=== PATIENT | male | born 1940 | race Caucasian/White ===

== ENCOUNTER → 2022-11-03 | Outpatient (CLI) | payer SELFPAY, OTHER ==
--- NOTE | 2022-11-03 09:13 | ECHOD_ITS ---
Reason For Study: PALPITATIONS, TAVR Procedure This was a 2D Doppler, Color Flow transthoracic echocardiogram. The exam was of adequate technical quality. Exam performed in department. Left Ventricle Normal LV size. Apical false tendon noted. Left ventricular systolic function is normal. The estimated ejection fraction is 60 %. No evidence for diastolic dysfunction. No regional wall motion abnormalities noted. Right Ventricle Normal RV size. Normal systolic function. Atria Normal left atrium. Normal right atrium. No doppler evidence for ASD. Mitral Valve There is no mitral annular calcification. Normal mitral valve. Mild (1+) mitral valve insufficiency. Tricuspid Valve Normal tricuspid valve. Trivial tricuspid valve insufficiency. Right ventricular systolic pressure estimated to be 32 mmHg. Aortic Valve Stable appearing bioprosthetic aortic valve apparatus. Trivial transvalvular insufficiency of the aortic valve. Pulmonic Valve Normal pulmonic valve. Mild (1+) pulmonic valve insufficiency. Great Vessels Normal sized aortic root. Pericardium/Pleural No pericardial effusion. MMode/2D Measurements & Calculations LVIDd: 4.7 cm IVSd: 1.3 cm LVOT diam: 2.0 cm LVIDs: 2.9 cm LVPWd: 1.2 cm LVOT area: 3.3 cm2 RVDd: 3.3 cm FS: 38.1 % Ao root diam: 3.3 cm LAV(MOD-bp): 50.5 ml LA A4 area: 16.2 cm2 LAV(MOD-bp) Indexed: 28.7 ml/m2 LAV(MOD-sp2): 46.4 ml LAV(MOD-sp4): 46.5 ml LA dimension(2D): 4.2 cm RA A4 area: 16.0 cm2 Time Measurements MV dec time: 0.30 sec Doppler Measurements & Calculations MV E max farzad: 45.5 cm/sec Lat Peak E' Farzad: 6.5 cm/sec Med Peak E' Farzad: 4.0 cm/sec MV A max farzad: 83.7 cm/sec E/E' lat: 7.0 E/E' med: 11.5 MV E/A: 0.54 MV dec slope: 154.4 cm/sec2 Ao V2 max: 165.3 cm/sec LV V1 max: 83.7 cm/sec Ao max P.9 mmHg LV V1 max P.8 mmHg Ao V2 mean: 120.6 cm/sec LV V1 mean P.6 mmHg Ao mean P.4 mmHg LV V1 mean: 60.3 cm/sec Ao V2 VTI: 39.1 cm LV V1 VTI: 20.0 cm AV (velocity ratio): 0.51 ARISTEO(I,D): 1.7 cm2 ARISTEO(V,D): 1.7 cm2 SV(LVOT): 65.5 ml PA V2 max: 117.2 cm/sec PI end-d farzad: 109.6 cm/sec TR max farzad: 268.4 cm/sec TR max P.8 mmHg ECHO/Echo Complete Interpretation Summary Left ventricular systolic function is normal. The estimated ejection fraction is 60 %. Apical false tendon noted. Mild (1+) mitral valve insufficiency. Trivial tricuspid valve insufficiency. Stable appearing bioprosthetic aortic valve apparatus. Trivial transvalvular insufficiency of the aortic valve. Mild (1+) pulmonic valve insufficiency. Right ventricular systolic pressure estimated to be 32 mmHg. No evidence for diastolic dysfunction. Ordering Physician: Cesar Lion Referring Physician: Walter Perez Performed By: Mounika Sewell, RDCS, RVT
--- NOTE | 2022-11-03 09:13 | CDU_ITS ---
Reason For Study: Carotid artery stenosis Rt. Velocities/BP Lt. Velocities/BP Prox CCA 58.9/12.6 cm/sec. Prox CCA 104.7/29.8 cm/sec. Mid CCA 57/17.3 cm/sec. Mid CCA 99.2/27.9 cm/sec. Dist CCA 45.6/16.3 cm/sec. Dist CCA 101/27.9 cm/sec. Prox ICA 45.4/14.6 cm/sec. Prox ICA 97.4/29.8 cm/sec. Mid ICA 45.4/24.5 cm/sec. Mid ICA 93.7/29.8 cm/sec. Dist ICA 37.8/17 cm/sec. Dist ICA 104.7/26 cm/sec. Rt. ICA/CCA = 0.80. Lt. ICA/CCA = 1.04. Prox ECA 367/84.7 cm/sec. Prox ECA 96.1/7.7 cm/sec. Rt. Vert. 43.9/10.7 cm/sec. Lt. Vert. 49.5/16.3 cm/sec. Right Extracranial There is homogeneous, smooth atherosclerotic plaque noted in the right common carotid artery. There is heterogeneous, irregular atherosclerotic plaque noted in the right internal carotid artery. There is heterogeneous, irregular atherosclerotic plaque noted in the right external carotid artery. Antegrade flow is noted in the right vertebral artery. Left Extracranial There is homogeneous, smooth atherosclerotic plaque noted in the left common carotid artery. There is heterogeneous, irregular atherosclerotic plaque noted in the left internal carotid artery. There is intimal thickening but no significant atherosclerotic plaque noted in the left external carotid artery. Antegrade flow is noted in the left vertebral artery. Procedure Carotid Duplex [id number]. This is a Carotid Duplex examination using B-mode, color flow and specral Doppler. Exam performed in department. VL/Carotid Duplex Ultrasound Interpretation Summary Mild (<50%) stenosis right extracranial internal carotid. Mild (<50%) stenosis left extracranial internal carotid. Patent and antegrade vertebrals bilaterally. Diminished velocities throughout right carotid system may incidacte more proxim al stenosis Ordering Physician: Cesar Lion Referring Physician: Walter Perez Performed By: Tatum Cannon RVT
[2022-11-03 09:55] LABS: AST(SGOT) 19 U/L (15-37); Alanine Aminotransfer ALT/SGPT 22 U/L (16-61); Albumin, Serum 3.6 g/dL (3.2-5.0); Alkaline Phosphatase 74 U/L (45-117); Bilirubin, Direct 0.16 mg/dL (0.00-0.30); Cholesterol 150 mg/dL (200); Globulin 3.1 g/dL (2.2-4.2); High Density Lipoprotein 56 mg/dL; Protein, Total 6.7 g/dL (6.4-8.2); Triglycerides 87 mg/dL; Very Low Density Lipoprotein 17 mg/dL (5-40)
== END | disposition home or self-care (01) ==
PROVIDERS: PCP Physician Assistant; Referring Provider Internal Medicine Cardiovascular Disease; Visit Provider Internal Medicine Cardiovascular Disease
DX: I65.23 Occlusion and stenosis of bilateral carotid arteries (principal); R00.2 Palpitations; I25.2 Old myocardial infarction; E78.2 Mixed hyperlipidemia; I25.10 Atherosclerotic heart disease of native coronary artery without angina pectoris; Z95.2 Presence of prosthetic heart valve; Z95.5 Presence of coronary angioplasty implant and graft; Z98.890 Other specified postprocedural states
CPT/HCPCS: 36415; 80061; 80076; 93306; 93880